=== PATIENT | female | born 1980 | race African-American/Black ===

== ENCOUNTER 2017-05-14 10:00 | Emergency (ER) | payer BC ==
[~2017-05-14] VITALS: Ht 172.7 cm; Wt 163.6 kg
[2017-05-14] MEDS ORDERED: METF500T4 PO (10:07)
[2017-05-14 10:31] LABS: GLUCOSE,POINT OF CARE 95 MG/DL (70-110)
[2017-05-14 11:35] VITALS: BP 129/85
== END 2017-05-14 12:19 | disposition home or self-care (01) ==
LOC: EMS 10:01
DX: R60.0 Localized edema (principal); B35.3 Tinea pedis; Z88.0 Allergy status to penicillin
CPT/HCPCS: 82962; 93971; 99284